=== PATIENT | male | born 1990 | race Caucasian/White ===

== ENCOUNTER 2020-09-17 07:10 | Day surgery (SDC) | payer OTHER, SELFPAY ==
[2020-09-10 13:00] VITALS: BMI 28.5
[2020-09-17] VITALS (7 sets, daily range): BP systolic 111–123; BP diastolic 69–94; PULSE 49–55; RESP 14–16; TEMP 36.1–36.4; O2SAT 95–99; BMI 29.1
--- NOTE | 2020-09-17 | LIP_PTH ---
PATIENT: VIVIENNE JACOBS LOC: [facility] U#:[id number] AGE/SX: 29/M ROOM: RE09/17/[address]: Dr. Derick Ellington MD : 1990 BED: DIS: 09/17/2020 SPEC #: [id number] RECD: 09/17/20 10:08 STATUS: EMILIE PHUONG #: [id number] BLADIMIR: 09/17/20 00:[address]: Derick Ellington DEPT: SURGICAL PATHOLOGY RECD BY: Terry Thao ENTERED: 09/17/20 10:08 SP TYPE: LIPOMA OT DR: No Primary Care Phys Tissues: Soft tissues, NOS Procedures: Surgery Specimen Level III HEADER OPERATION: Lap robotic right inguinal hernia repair with mesh PRE-OP DIAGNOSIS: Right inguinal hernia TISSUE SUBMITTED: Lipoma, right inguinal MICROSCOPIC DIAGNOSIS Lipoma, right inguinal: Mature adipose tissue, consistent with lipoma. SJ:jose rafael 09/18/2020 MICROSCOPIC DESCRIPTION Slides are reviewed. GROSS DESCRIPTION Received in fixative is one container labeled with the patient's name and designated lipoma, right inguinal. The specimen consists of three irregular fragments of yellow fatty tissue ranging in size from 1.5 to 4 cm. Serial sections reveal homogenous yellow cut surfaces without areas of cyst formation, necrosis or myxoid change. Dry Dip Worker sections are submitted in one cassette. / AM:jose rafael 09/17/20 TC: 1 CPT: 22014
--- NOTE | 2020-09-17 05:00 | HP_ITS ---
Intake Vital Signs 09/10/20 Height 6 ft 09/10/20 Weight: 210 lb 09/10/20 BP 131/82 H 09/10/20 Blood Pressure Location Rt brachial 09/10/20 Position Sitting 09/10/20 Respiration 16 09/10/20 Pulse 57 L 09/10/20 Pulse Source Monitor 09/10/20 Temp 98.0 F 09/10/20 Temp Source Temporal 09/10/20 Pulse Oximetry (%) 99 09/10/20 Oxygen Delivery Method room air Intake Visit Reasons: Hernia Property Claims Adjuster Required: No Is patient in pain?: No Allergies No Known Allergies Allergy (Verified 09/10/20 13:00) Medications NK 09/10/20 [History Confirmed 09/10/20] [facility] Medical History (Updated 09/10/20 @ 12:59 by Anaya Duarte) Right inguinal hernia (Acute) Surgical History (Updated 09/10/20 @ 12:59 by Anaya Duarte) No significant past surgical history (Acute) Family History (Updated 09/10/20 @ 12:59 by Anaya Duarte) Mother No problems noted. HPI HPI HPI: VIVIENNE JACOBS, is a 29 M who presents to the office today for HPI HPI Surgical H&P: Yes HPI: VIVIENNE JACOBS, is a 29 M who presents to the office today for Right inguinal hernia. The patient has noted bulging for the last 4 months in the right groin. He does have occasional pain in the left groin. He has not had any nausea or vomiting. He says is worse when doing heavy lifting. He does radiate to the right scrotum. Patient does not have any fevers or chills or Covid contacts. Patient does not have any exacerbating or remitting factors. ROS General General: No weight change, appetite, fatigue, colon cancer, breast cancer or weakness HEENT HEENT: No difficulty swallowing, eye injury, eye surgery, swollen glands or hoarseness Endo Endocrine: No thyroid disease, diabetes mellitus, thyroid cancer, Hair loss, heat intolerance or cold intolerance Skin Skin: No rash or changing moles Musc Musculoskeletal: No back problems, arthritis, rheumatoid arthritis, gout or joint pain Cardio Cardiovascular: No murmur, pacemaker, heart disease, atrial fibrillation, high blood pressure, heart attack, heart stent, palpitations, shortness of breat with exertion or chest pain Psych Psychiatric: No depression, anxiety or hearing voices Resp Respiratory: No shortness of breath, No sleep apnea, No cough, No COPD, No asthma, No emphysema, No wheezing Gastro Gastrointestinal: No abdominal pain, No nausea or vomiting, No diarrhea, No constipation, No blood in stool, No acid reflux, No hemorrhoids, No ulcers, No gallbladder problem, No black,tarry stools Mikhail Hematologic: No blood thinners, No blood disorders, No bleeding, No anemia, No blood clots Neuro Neurologic: No system reviewed and no additional complaints, except as docu, No as per HPI, No abnormal walking, No abnormal hearing, No abnormal movements, No abnormal speech, No behavioral changes, No burning sensations, No confusion, No seizure-like activity, No unsteadiness, No dizziness, No localized weakness, No frequent falls, No headache(s), No lack of coordination, No loss of vision, No memory loss, No numbness, No other visual disturbances, No radiating pain, No restless legs, No sensory deficit, No fainting, No tingling, No tremor(s), No weakness, No other Exam Const General: cooperative Orientation: alert, oriented x3 Resp Effort & Inspection: normal respiratory effort Auscultation: clear to auscultation bilaterally Cardio Rate: regular rate Rhythm: regular rhythm Heart Sounds: no murmurs GI Inspection: non-distended Palpation: soft, hernia indirect inguinal on the right, nontender Assessment & Plan Problems 1. Right inguinal hernia K40.90 Plan The patient does have a right inguinal hernia which is reducible. I was not able to palpate a hernia on the left side. I discussed open versus laparoscopic approach with him. The patient elected for robotic assisted laparoscopic approach. I discussed Repair of the contralateral side if hernia was present on the left and he would like it repaired if it is present. I discussed the repair in detail with the patient. I discussed the risks including not limited to bleeding, infection, injury to underlying bowel, chronic groin pain, injury to spermatic cord, recurrence of hernia. The patient understands the risks and is when to proceed. I also described I will be placing mesh in the inguinal region. We discussed the current risks associated with COVID-19. While it is understood that there is a community spread of COVID-19, the risk of francois COVID-19 while at [facility] ([facility]) is very low; however, the risk cannot be completely mitigated because of the community spread of the disease. We discussed in detail the risk of exposure to and/or potential harm posed by the COVID-19 virus with having a surgery/procedure at this time versus the risk of delaying the surgery/procedure. It is not possible to know either the risk of delaying the surgery or procedure or chance of getting an infection with perfect accuracy, but a joint decision was made to proceed at this time with the scheduled surgery/procedure as indicated on the consent form. Patient was notified that we will need to comply with any screening or testing [facility] wishes to perform or that surgery may be delayed for any positive results. Derick Ellington MD Pager: [facility] [address] [place] [address], [address] [place] [address] Office: Coding Level of Care Code Off vis,new,level 4 Diagnoses Right inguinal hernia K40.90 Time Spent (min) 45 I have re-examined the patient. There are no clinical changes since date of exam.
[2020-09-17] MEDS: Lactated Ringers 1,000 ML 100 ML IV (07:51)
[2020-09-17] MEDS: Cefazolin 2 GM in 0.9% Normal Saline 100 ML IV (08:16)
[2020-09-17] MEDS: Bupivacaine Mpf 0.5% 30 ML VIAL (09:30)
--- NOTE | 2020-09-17 09:46 | PCM.OPRPT ---
Problem List (1) Right inguinal hernia Status: Acute Report of Operation Date of Procedure: 09/17/20 Pre-Operative Diagnosis: Right inguinal hernia Post-Operative Diagnosis: Same Surgery/Procedure Performed:: Robotic assisted laparoscopic right inguinal hernia repair with mesh Specimen's removed: Right cord lipoma Description of Procedure: Patient was brought back to the operating room and general anesthesia was induced. The abdomen was prepped and draped in usual sterile fashion. An incision was made superior to the umbilicus and deepened to the fascia. The fascia was elevated and a Veress needle was placed into the abdomen and a drop test was performed. Next the abdomen was insufflated 15 mmHg. The Veress needle was removed and a camera port was placed into the abdomen and the camera was then placed into the abdomen. The abdomen was inspected and there appeared to be no injuries. The groins were inspected and there appeared to only be a right inguinal hernia. Next under direct visualization an 8 mm port was placed in the right lateral and left lateral abdomen. Patient was then placed in steep Trendelenburg position and the robot was docked. Using cautery scissors an incision was made in the peritoneum in the right inguinal region and this was dissected inferiorly until the hernia was encountered. The hernia sac was dissected free and reduced into the abdomen. There was a lipoma in the right groin which was also dissected free. The lipoma was removed and a piece of progrip mesh was placed into the right groin area and unfolded and placed over the hernia. The peritoneum was reapproximated using a 3-0V lock suture incorporating the hernia sac. The mesh was completely covered at the end of the case with peritoneum. Next the instruments were removed and the robot was undocked and the ports were removed. The air was allowed to desufflate from the abdomen. The incisions were injected with local anesthetic and closed with interrupted 4-0 Monocryl sutures and Steri-Strips and bandages. The scrotum was checked at the end the case and contain both testicles. The patient was extubated taken to PACU in stable condition. Grafts/Implants Used: Progrip mesh - Admit VTE Documentation VTE Mechan Device Prophylaxis: SCD's
--- NOTE | 2020-09-17 09:54 | DCINST_ITS ---
Discharge Diet: Light diet - advance as tolerated Discharge Activity: Return to Normal Activity, May Not Drive - for 2-3 days or while taking narcotic pain meds., May Shower - with the bandage in place 1-2 days after surgery. Lifting Restrictions: 20 pounds for 4 weeks. Additional Activity Instructions:: Climbing stairs is fine, walking is encouraged. Sitting in bed may be uncomfortable. Sitting up using your lateral muscles (sitting up sideways) is usually more comfortable. Do not drive, work heavy equipment of sign legal documents for 24 hours. If your hernia repair was an ingunial repair, you may have scrotal swelling, an ice pack will help with pain. Wear tight fitting underwear. Pain medications may cause nausea, you should typically eat light foods as you take your pain medications. Pain medications may also cause constipation. If you have difficulty with this, dis cuss with your doctor. Call your doctor if your incision/area has: Continuous Slow Oozing, Sudden Increased Bleeding, Increased Pain/ Swelling, Increased Redness, Foul Smelling Discharge Call your doctor if you observe: Fever of 101 or Higher Suture Line Care: Avoid Pulling/Pushing, Avoid Pinching/Bending Change Dressing in (Days):: 3 - Leave steri-strips for 1 week. May protect with a guaze bandaid. Cleanse incision/area with: Keep Dressing Clean & Dry Allergies/Adverse Reactions: Allergies No Known Allergies Allergy (Verified 09/11/20 14:38) Medications to take at Discharge Oxycodone HCl/Acetaminophen [Percocet 5-325 mg Tablet] 1 tab PO Q6H PRN PRN 3 Days #10 tablet 09/17/20 The following prescriptions were given: Oxycodone HCl/Acetaminophen [Percocet 5-325 mg Tablet] 1 tab PO Q6H PRN PRN 3 Days #10 tablet PRN Reason: Pain Score 4-10/10 Transmission Status: Sent to [facility] Primary Care Physician: Care Physician,No Primary [Primary Care Provider] - Test Results: Test results from this visit will be discussed in further detail at your follow- up appointment, if applicable. Please Follow Up With: Derick Ellington MD When: Please call to schedule 2 week follow up appointment. [phone]
[2020-09-17] MEDS: Acetaminophen 325 MG Tablet PO (10:36)
[2020-09-17] MEDS: oxyCODONE 5 MG Tablet PO (10:36)
== END 2020-09-17 12:22 | disposition home or self-care (01) ==
LOC: SDC 07:11 → AC 07:11
PROVIDERS: Referring Provider Surgery; Visit Provider Surgery
PROC: (CPT 49650; principal; 2020-09-17 08:25)
DX: K40.90 Unilateral inguinal hernia, without obstruction or gangrene, not specified as recurrent (principal); D17.1 Benign lipomatous neoplasm of skin and subcutaneous tissue of trunk; Z20.828 Contact with and (suspected) exposure to other viral communicable diseases
CPT/HCPCS: 00840; 49650; S2900; 87426; 88304; C9803; J7120; J2405